=== PATIENT | female | born 1960 | race Hispanic/Latino ===

== ENCOUNTER 2019-06-06 08:46 | Day surgery (SDC) | payer MEDICAID ==
[2019-06-06] MEDS ORDERED: SODIUM CHLORIDE 0.9% 1000 ML 1,000 ML ONE (09:46)
[2019-06-06] MEDS ORDERED: PROPOFOL 200 MG/20 ML VIAL IV ONE (09:52)
[2019-06-06] MEDS ORDERED: LIDOCAINE MPF (2%) 20 MG/1 ML VIAL 5 ML ONE (10:00)
--- NOTE | 2019-06-06 10:05 | Anesthesia Consultation ---
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
--- NOTE | 2019-06-06 10:06 | Anesthesia Day of Surgery ---
Anesthesia Day of Surgery - Day of Surgery Patient Examined: Yes Patient H&P Reviewed: Yes Patient is NPO: Yes
--- NOTE | 2019-06-06 10:16 | History and Physical Report ---
HISTORY OF PRESENT ILLNESS: This is a 58-year-old white female with underlying history of hypertension, recent history of CVA and a history of smoking. She states that she is at present trying to give up smoking. She is here for evaluation for colonoscopy, which is to be done today. She had been asked to get a cardiac clearance. ALLERGIES: No known allergies. SOCIAL HISTORY: Admits to smoking, but states that she is trying to give it up. No alcohol use. Does have cardiac issues, which have been addressed. No flu shots. MEDICATIONS: Atorvastatin and aspirin that she has stopped 2 days ago. PHYSICAL EXAMINATION: VITAL SIGNS: She is afebrile, blood pressure 130/86, pulse is 88, height is 5 feet 5 inches, weight is 116 pounds. HEENT: Shows no JVD. LUNGS: Clear to auscultation with some reduced breath sounds. CARDIOVASCULAR: Normal. ABDOMEN: Soft. Bowel sounds present. NEUROLOGIC: She is alert and oriented with a recent history of a CVA with little residual effect. ASSESSMENT: Colon polyp screening, hypertension, CVA. PLAN: To do a colonoscopy at [facility] on 06/06/2019. Once cardiac clearance is obtained, the patient is to use the Moviprep as a prep. JOB# [id number] HELADIO/ROSELIA
[2019-06-06] MEDS ORDERED: SODIUM CHLORIDE 0.9% 1000 ML 1,000 ML IV SCH (10:45)
--- NOTE | 2019-06-06 11:11 | Procedure Note ---
Date of procedure: 06/06/19 Pre-op diagnosis: Colon Polyp Screening Post-op diagnosis: other (Solitary,Cecal Polyp (removed 'piece meal' by snare polypectomy and cold biopsy)/Minor,Internal Hemorrhoid/ No Diverticular disease noted) Procedure: Colonoscopy with Snare Polypectomy and cold Biopsy [place] [facility] [place]: ZENON DAVIS Estimated blood loss: minimal Pathology: list Specimen disposition: to lab Condition: stable Disposition: same day (Avoid aspirin and NSAID for 5 days; otherwise resume home medication. Follow up in 1 to 2 weeks([phone]).)
--- NOTE | 2019-06-06 11:18 | Operative Report ---
PROCEDURE: Colonoscopy with snare polypectomy and cold biopsy. INDICATIONS: This is a 58-year-old white female with an underlying history of hypertension, COPD, history of smoking, recent history of a CVA with very little residual effect, had a colonoscopy done as part of colon polyp screening. She gives no family history of cancer. PROCEDURE IN DETAIL: Procedure was done after getting informed consent with MAC anesthesia. Initial rectal exam was unremarkable. Instrument was passed through the rectum onto the cecum, which was identified with ileocecal valve and appendiceal orifice. There was a 12 mm sessile polyp noted in the cecum that was removed in piecemeal fashion using the snare polypectomy and cold biopsy. The tip of the snare polypectomy was used to cauterize some of the edges of the polyp. No other pathology was noted in the cecum, ascending colon, transverse colon, descending colon, sigmoid and the rectum showed minor internal hemorrhoid on the retroverted view. There was minimal bleeding from the polypectomy site. ASSESSMENT: Colon polyp screening. Solitary sessile cecal polyp removed in a piecemeal fashion. Minor internal hemorrhoid. No diverticular disease noted. There were no complications associated with the procedure and minimal bleeding associated with the polypectomy. The procedure was done in the GI lab with assistance of the GI lab team, which included KOJO, Jennifer Blanco, the orthophoto tech/draftsman and with assistance of anesthesia. The patient will be asked to follow up in the office in 1-2 weeks' time. JOB# [id number] HELADIO/ROSELIA
[2019-06-06 11:48] VITALS: BP 130/76
--- NOTE | 2019-06-06 15:47 | Post Anesthesia Evaluation ---
- Post Anesthesia Evaluation Patient Participated: Yes Airway Patent: Yes Stable Respiratory Function: Yes Nausea/Vomiting: No Temp > 96.8F: Yes Pain Manageable: Yes Adequeate Hydration: Yes Anesthesia Complications: No
== END 2019-06-06 08:47 | disposition home or self-care (01) ==
LOC: GIO 08:46
DX: K52.89 Other specified noninfective gastroenteritis and colitis (principal); K57.80 Diverticulitis of intestine, part unspecified, with perforation and abscess without bleeding; D12.0 Benign neoplasm of cecum; R10.84 Generalized abdominal pain; K64.8 Other hemorrhoids; I10 Essential (primary) hypertension; J44.9 Chronic obstructive pulmonary disease, unspecified; E78.00 Pure hypercholesterolemia, unspecified; F17.210 Nicotine dependence, cigarettes, uncomplicated; Z98.890 Other specified postprocedural states; Z79.899 Other long term (current) drug therapy; Z79.82 Long term (current) use of aspirin; Z86.73 Personal history of transient ischemic attack (TIA), and cerebral infarction without residual deficits
CPT/HCPCS: 45385; 88305; J2704; J7030